=== PATIENT | male | born 1985 | race Caucasian/White ===

== ENCOUNTER 2019-11-19 13:26 | Emergency (ER) | payer SELFPAY ==
[~2019-11-19] VITALS: Ht 177.8 cm; Wt 81.8 kg
[2019-11-19 13:38] VITALS: TEMP 98.6
[2019-11-19] MEDS ORDERED: FLEXERIL 1010 MG/TAB PO (14:42)
[2019-11-19] MEDS ORDERED: NORCO 325 MG-51 TAB PO (14:42)
[2019-11-19 14:51] VITALS: PULSE 87
== END 2019-11-19 14:51 | disposition home or self-care (01) ==
LOC: COL.ER 13:26
DX: M54.5 Low back pain (principal); X50.0XXA Overexertion from strenuous movement or load, initial encounter
CPT/HCPCS: J1885

== ENCOUNTER → 2020-01-10 | Outpatient (CLI) | payer SELFPAY ==
[~2020-01-10] MED LIST: BACTRIM DS 8001 TAB PO; FLEXERIL 1010 MG/TAB PO; NORCO 325 MG-51 TAB PO
== END ==
LOC: COL.RAD 01-07 14:00
DX: M51.27 Other intervertebral disc displacement, lumbosacral region (principal); M48.07 Spinal stenosis, lumbosacral region; M47.817 Spondylosis without myelopathy or radiculopathy, lumbosacral region

== ENCOUNTER 2020-01-12 23:36 | Emergency (ER) | payer SELFPAY ==
[~2020-01-12] VITALS: Ht 177.8 cm; Wt 77.3 kg
[~2020-01-12 23:36] MED LIST changes: -BACTRIM DS 8001 TAB PO
[2020-01-12 23:56] VITALS: BP 141/90; TEMP 98.1
[2020-01-13] MEDS ORDERED: BACTRIM DS 8001 TAB PO (00:09)
[2020-01-13] MEDS ORDERED: NORCO 325 MG-51 TAB PO (00:09)
[2020-01-13 00:26] VITALS: PULSE 98
== END 2020-01-13 00:24 | disposition home or self-care (01) ==
LOC: COL.ER 23:36
DX: L02.214 Cutaneous abscess of groin (principal); F17.210 Nicotine dependence, cigarettes, uncomplicated; Z88.5 Allergy status to narcotic agent

== ENCOUNTER 2020-09-11 14:42 | Emergency (ER) | payer SELFPAY ==
[~2020-09-11] VITALS: Ht 177.8 cm; Wt 81.8 kg
[~2020-09-11 14:42] MED LIST changes: +BACTRIM DS 8001 TAB PO
[2020-09-11 14:47] VITALS: BP 124/82; TEMP 97.7
[2020-09-11] MEDS ORDERED: MEDROL 4MG DOSPA4 MG PO ×3 (15:52→16:12)
[2020-09-11] MEDS ORDERED: NORCO 325 MG-51 TAB PO ×3 (15:52→16:12)
[2020-09-11] MEDS ORDERED: FLEXERIL 1010 MG/TAB PO ×3 (15:54→16:12)
[2020-09-11 16:06] VITALS: PULSE 85
== END 2020-09-11 16:06 | disposition home or self-care (01) ==
LOC: COL.ER 14:42
DX: M54.5 Low back pain (principal); G89.29 Other chronic pain; F17.200 Nicotine dependence, unspecified, uncomplicated; Z88.5 Allergy status to narcotic agent; Z79.891 Long term (current) use of opiate analgesic
CPT/HCPCS: J1885